=== PATIENT | male | born 1975 | race Caucasian/White ===

== ENCOUNTER 2022-02-23 19:23 | Emergency (ER) | payer MEDICAID ==
[~2022-02-23] VITALS: Ht 177.8 cm; Wt 83.9 kg
--- NOTE | 2022-02-23 21:14 | NUR ---
BBS THIS 47YO MALE PATIENT. AMBULATORY, AAOX4. CAME WITH CC OF LACERATED WOUND ON RIGHT THUMB. PLACED COMFORTABLY IN BED. VITALS CHECKED.
[2022-02-23 21:15] VITALS: BP 144/70
--- NOTE | 2022-02-23 21:32 | NUR ---
SUPERVISOR MIXING AT PT'S BEDSIDE
--- NOTE | 2022-02-23 21:50 | NUR ---
EMT AT BED SIDE FOR WOUND CARE
[2022-02-23] MEDS ORDERED: CEPH500C2 PO (21:56)
--- NOTE | 2022-02-23 22:38 | NUR ---
Patient discharged to home in stable condition. Written and verbal after care instructions given. Patient verbalizes understanding of instruction.
== END 2022-02-23 22:44 | disposition home or self-care (01) ==
LOC: ER 19:30
DX: S68.521A Partial traumatic transphalangeal amputation of right thumb, initial encounter (principal); Z60.2 Problems related to living alone; W01.0XXA Fall on same level from slipping, tripping and stumbling without subsequent striking against object, initial encounter; Y93.89 Activity, other specified; Y92.89 Other specified places as the place of occurrence of the external cause; Y99.8 Other external cause status
CPT/HCPCS: 73140-TC